=== PATIENT | female | born 1950 | race Caucasian/White ===

== ENCOUNTER 2016-08-21 15:24 | Emergency (ER) | payer OTHER ==
[~2016-08-21] VITALS: Ht 167.6 cm; Wt 85.0 kg
[~2016-08-21 15:24] MED LIST: ACET500T3 PO; AMLO5TAB2 PO; AZIT500T2 PO; BACL10TA PO; BENZ100 PO; FLUO20CA4 PO; GABA600T PO; MEDR4PAK PO; MOBI15TA PO; PENL8SOL TOPICAL; PRED50 PO
[2016-08-21 15:26] VITALS: BP 129/62; PULSE 92; RESP 16; TEMP 98.1; O2SAT 97
[2016-08-22 00:44] VITALS: BP 159/78; PULSE 80; RESP 18; O2SAT 97
--- NOTE | 2016-08-22 00:49 | PD ---
HPI Chief Complaint: Respiratory Symptoms Time Seen by Provider: 00:47 Travel History International Travel<30 days: No Contact w/Intl Traveler<30days: No Traveled to known affect area: No History of Present Illness HPI This is a 65-year-old female who presents to the emergency department with 5 days of wheezing, productive cough with yellow sputum, and shortness of breath, worsening with exertion, improved with rest with no associated fevers or chills. Patient reports that she saw her primary care physician 3 days ago and was prescribed prednisone and azithromycin that she feels like her cough isn't improving. She never smoked but every year she gets bronchitis around this same time. She's been having trouble sleeping at night due to the cough. PFSH Past Medical History Arthritis: Yes Depression: Yes Cancer: Yes (right breast cancer) Cardiovascular Problems: No High Cholesterol: Yes Cerebrovascular Accident: Yes Diabetes: No Endocrine: No Genitourinary: No Hepatitis: No Hiatal Hernia: Yes Hypertension: Yes Immune Disorder: No Kidney Stones: Yes Musculoskeletal: Yes (arthritis, osteo curvature of the spine alot of pain, osteoporosis) Neurologic: Yes (DIZZINESS at times, POSSIBLE TIA) Psychiatric: No Reproductive: No Respiratory: No Migraines: Yes Thyroid Disease: No ?: Not Past Surgical History Abdominal Surgery: Yes (KIDNEY STONE REMOVAL) AICD: No Body Medical Devices: hardware in the left ankle-2 rods and 2 screws Cardiac Surgery: No Ear Surgery: No Endocrine Surgery: No Eye Surgery: Yes (tear duct drainage ) Genitourinary Surgery: No Gynecologic Surgery: Yes (hysterectomy) Hysterectomy: Yes Joint Replacement: No Oral Surgery: Yes (t and a) Pacemaker: No Thoracic Surgery: No Tonsillectomy: Yes Social History Alcohol Use: Yes (OCCASIONAL) Tobacco Use: No Substance Use: No Allergies-Medications (Allergen,Severity, Reaction): Coded Allergies: Sulfa (Verified Allergy, Severe, Rash, 08/22/16) Reported Meds & Prescriptions Reported Meds & Active Scripts Active Azithromycin 500 Mg Tab 500 Mg PO DAILY Prednisone 50 Mg Tab 50 Mg PO DAILY Tessalon Perles (Benzonatate) 100 Mg Cap 100 Mg PO TID PRN Fluoxetine (Fluoxetine HCl) 20 Mg Cap 20 Mg PO TID Penlac (Nail Lacquer) Topical (Ciclopirox (Nail Lacquer) Topical) 8% Soln 1 Applic TOPICAL HS Reported Acetaminophen 500 Mg Tab 500 Mg PO Q6H PRN Mobic (Meloxicam) 15 Mg Tab 15 Mg PO DAILY Amlodipine (Amlodipine Besylate) 5 Mg Tab 5 Mg PO DAILY Baclofen 10 Mg Tab 10 Mg PO TID PRN Gabapentin 600 Mg Tab 600 Mg PO TID Review of Systems Except as stated in HPI: all other systems reviewed are Neg Physical Exam Narrative GENERAL:Well appearing, no acute distress SKIN: Warm and dry. HEAD: Atraumatic. Normocephalic. EYES: Pupils equal and round. No injection or drainage. ENT: Moist mucous membranes NECK: Trachea midline. CARDIOVASCULAR: Regular rate and rhythm. No murmur appreciated. RESPIRATORY: Diffuse wheezing, mild tachypnea, speaking full sentences GASTROINTESTINAL: Abdomen soft, non-tender, nondistended. MUSCULOSKELETAL: No obvious deformities. NEUROLOGICAL: Awake and alert. No obvious cranial nerve deficits. Moving all extremity PSYCHIATRIC: Appropriate mood and affect; insight and judgment normal. Data Data Last Documented VS Vital Signs Date Time Temp Pulse Resp B/P Pulse Ox O2 Delivery O2 Flow Rate FiO2 08/22/16 02:33 97 21 08/22/16 00:45 78 18 Room Air 08/22/16 00:44 159/78 08/21/16 15:26 98.1 Orders Albuterol-Ipratropium Neb (Duoneb Neb) (08/22/16 01:00) Chest, Pa & Lat (08/22/16 ) [facility] [place] Medical Decision Making Medical Screen Exam Complete: Yes Emergency Medical Condition: Yes Interpretation(s) Afebrile, mild tachycardia, normotensive Chest x-ray: No acute process Differential Diagnosis Bronchitis, pneumonia, pulmonary embolism Narrative Course This is a 65-year-old female who presents to the emergency department with shortness of breath and a productive cough. She is diffusely wheezing on exam. She was given serial bronchodilator treatments. She already took steroids today. On repeat exam her wheezing was significantly improved and she feels much better. Chest x-ray was negative for pneumonia. I think the patient should continue her steroids and antibiotics and she'll be discharged on a bronchodilator as well as a cough suppressant. Diagnosis Primary Impression: Bronchitis Patient Instructions: General Instructions Additional Instructions: If you develop severe shortness of breath, chest pain, or difficulty breathing return to the emergency department. Use albuterol every 4 hours for the next 2 days. Then use as needed for wheezing. Complete your course of steroids. Complete your course of antibiotics. Follow up with your primary care physician in 2-3 days if your symptoms have not improved. Med/Other Pt SpecificInfo: Prescription(s) given Scripts Promethazine-Codeine Liq 6.25-10 Mg/5 Ml Syrp5 Ml PO Q6H PRN (COUGH AND/OR COLD SYMPTOMS) #100 ML Ref 0 Prov:Yoanna Lopez MD 08/22/16 Albuterol 8.5 GM Inh (Proair Hfa 8.5 GM Inh)90 Mcg/Act Aer2 Puff INH Q4-6H PRN ( SHORTNESS OF BREATH) #1 INHALER Ref 0 108 mcg/actuation Prov:Yoanna Lopez MD 08/22/16 Disposition: 01 DISCHARGE HOME Condition: Stable Yoanna Lopez MD Aug 22, 2016 00:49
--- NOTE | 2016-08-22 01:58 | RADRPT ---
EXAM DATE/TIME: 08/22/2016 01:20 [facility] COMPARISON: CHEST SINGLE AP, November 07, 2014, 11:45. INDICATIONS : Cough. MEDICAL HISTORY : Hypertension. SURGICAL HISTORY : Mastectomy, right. ENCOUNTER: Initial ACUITY: 1 day PAIN SCORE: 0/10 LOCATION: Bilateral chest FINDINGS: PA and lateral views of the chest demonstrate the lungs to be symmetrically aerated without evidence of mass, infiltrate or effusion. The cardiomediastinal contours are unremarkable. Osseous structure s are intact. Right mastectomy. CONCLUSION: Clear lungs. Jose De Jesus Zapata MD on August 22, 2016 at 1:56 Board Certified Radiologist. This report was verified electronically.
[2016-08-22] MEDS: RESP: ALBUTEROL 2.5 MG/IPRATROPIUM 0.5 MG NEB (SCH) INH ×2 (02:30→02:31)
[2016-08-22 02:33] VITALS: O2SAT 97
[2016-08-22] MEDS ORDERED: PROM6.256 PO (02:50)
[2016-08-22] MEDS ORDERED: ALBUAER3 INH (02:50)
[2016-09-03] MEDS ORDERED: BACL10TA PO ×2 (13:56→13:57)
[2016-09-27] MEDS ORDERED: GABA600T PO ×2 (10:17→10:19)
[2016-11-29] MEDS ORDERED: GABA600T PO (13:41)
[2016-12-10] MEDS ORDERED: AMLO5TAB2 PO (08:25)
[2016-12-11] MEDS ORDERED: AMLO5TAB2 PO (07:50)
== END 2016-08-22 03:26 | disposition home or self-care (01) ==
LOC: NEPC 15:24
DX: J40 Bronchitis, not specified as acute or chronic (principal); E78.00 Pure hypercholesterolemia, unspecified; I10 Essential (primary) hypertension; Z88.2 Allergy status to sulfonamides; Z85.3 Personal history of malignant neoplasm of breast
CPT/HCPCS: 71020; 94640; 94664; 99283

== ENCOUNTER → 2017-01-28 | Outpatient (CLI) | payer OTHER ==
[~2017-01-28] MED LIST changes: +ALBUAER3 INH; +FLUO20CA12 PO; +MAPA500T13 PO; -MEDR4PAK PO; +OMEP40CA2 PO; +PROM6.256 PO
== END ==
LOC: CLAB 10:25
PROVIDERS: ATTEND Family Medicine
DX: M79.674 Pain in right toe(s) (principal)
CPT/HCPCS: 36415; 84550

== ENCOUNTER → 2017-03-04 | Outpatient (CLI) | payer OTHER ==
[~2017-03-04] MED LIST changes: -ACET500T3 PO; -ALBUAER3 INH; -AZIT500T2 PO; -BENZ100 PO; +CEPH-460 PO; +DIFL150T PO; -FLUO20CA4 PO; +POLY10O EACH EYE; -PRED50 PO; -PROM6.256 PO
[2017-03-04 09:14] LABS: AUTOMATED NEUTROPHIL # 2.7 TH/MM3 (1.8-7.7); BASOPHIL % 0.9 % (0.0-2.0); EOSINOPHIL # 0.1 TH/MM3 (0-0.4); EOSINOPHIL % 1.8 % (0.0-4.0); HEMATOCRIT 27.6 % (35.0-46.0); HEMO FLAGS DIFF FINAL; LYMPH % 20.5 % (9.0-44.0); LYMPHOCYTE # 0.8 TH/MM3 (1.0-4.8); MEAN CELL VOLUME 89.1 FL (80.0-100.0); MEAN CORPUSCULAR HGB CONC 31.5 % (32.0-36.0); NEUT % 70.8 % (16.0-70.0); PLATELET COUNT 261 TH/MM3 (150-450); RED BLOOD COUNT 3.09 MIL/MM3 (4.00-5.30); WHITE BLOOD COUNT 3.8 TH/MM3 (4.0-11.0)
[2017-03-04 09:51] LABS: ANION GAP 8 MEQ/L (5-15); AST (GOT) 13 U/L (15-37); BICARBONATE 26.3 MEQ/L (21.0-32.0); BLOOD UREA NITROGEN 19 MG/DL (7-18); CHLORIDE 107 MEQ/L (98-107); GLOMERULAR FILTRATION RATE 97 ML/MIN (>89); GLUCOSE,FASTING 94 MG/DL (74-99); POTASSIUM 3.6 MEQ/L (3.5-5.1); SODIUM (NA) 141 MEQ/L (136-145)
[2017-03-04 10:03] LABS: ALKALINE PHOSPHATASE 73 U/L (45-117); ALT (GPT) 19 U/L (10-53); HDL CHOLESTEROL 67.3 MG/DL (40.0-60.0); LDL CHOLESTEROL 74 MG/DL (0-99); TOTAL BILIRUBIN ADULT 0.4 MG/DL (0.2-1.0)
== END ==
LOC: CLAB 08:40
PROVIDERS: ATTEND Family Medicine
DX: K58.9 Irritable bowel syndrome, unspecified (principal); M79.674 Pain in right toe(s); G89.29 Other chronic pain; M19.90 Unspecified osteoarthritis, unspecified site; Z85.3 Personal history of malignant neoplasm of breast
CPT/HCPCS: 36415; 80053; 80061; 84443; 85025

== ENCOUNTER → 2017-03-06 | Outpatient (CLI) | payer OTHER ==
--- NOTE | 2017-03-06 11:24 | RADRPT ---
EXAM DATE/TIME: 03/06/2017 11:07 [facility] COMPARISON: No previous studies available for comparison. INDICATIONS : Abdomen pain, chronic intermittent diarrhea. MEDICAL HISTORY : IBS, Low hemoglobin count, high blood pressure. SURGICAL HISTORY : Hysterectomy. ENCOUNTER: Initial ACUITY: 1 day PAIN SCORE: 7/10 LOCATION: Bilateral abdomen FINDINGS: The bowel gas is nonspecific. There are no signs of obstruction or free air for technique. No defini te calcified stones are identified for technique. Moderate stool is present throughout the colon. CONCLUSION: Unremarkable study except for stool. Christy Mock MD on March 06, 2017 at 11:21 Board Certified Radiologist. This report was verified electronically.
== END ==
LOC: HRAD 10:40
PROVIDERS: ATTEND Family Medicine
DX: R10.84 Generalized abdominal pain (principal)
CPT/HCPCS: 74000

== ENCOUNTER → 2017-03-06 | Outpatient (CLI) | payer OTHER ==
[2017-03-06 12:03] LABS: BASOPHIL % 0.8 % (0.0-2.0); EOSINOPHIL % 0.1 % (0.0-4.0); HEMATOCRIT 29.3 % (35.0-46.0); HEMO FLAGS DIFF FINAL; LYMPH % 15.2 % (9.0-44.0); LYMPHOCYTE # 0.6 TH/MM3 (1.0-4.8); MEAN CELL VOLUME 87.9 FL (80.0-100.0); MEAN CORPUSCULAR HEMOGLOBIN 27.8 PG (27.0-34.0); MEAN CORPUSCULAR HGB CONC 31.6 % (32.0-36.0); MONO % 8.6 % (0.0-8.0); NEUT % 75.3 % (16.0-70.0); PLATELET COUNT 232 TH/MM3 (150-450); RED BLOOD COUNT 3.33 MIL/MM3 (4.00-5.30); RED CELL DISTRIBUTION WIDTH 16.4 % (11.6-17.2)
== END ==
LOC: CLAB 11:20
PROVIDERS: ATTEND Family Medicine
DX: D64.89 Other specified anemias (principal)
CPT/HCPCS: 36415; 85025

== ENCOUNTER 2017-03-25 16:50 | Emergency (ER) | payer OTHER ==
[~2017-03-25] VITALS: Ht 167.6 cm; Wt 90.0 kg
[~2017-03-25 16:50] MED LIST changes: -CEPH-460 PO; -DIFL150T PO; -POLY10O EACH EYE
[2017-03-25 16:53] VITALS: BP 130/58; PULSE 94; RESP 16; TEMP 98.4; O2SAT 98
[2017-03-25] MEDS ORDERED: DIFL150T PO (19:13)
[2017-03-25] MEDS ORDERED: CEPH-460 PO (19:13)
[2017-03-25] MEDS ORDERED: POLY10O EACH EYE (19:13)
--- NOTE | 2017-03-25 19:13 | PD ---
HPI Chief Complaint: Skin Problem Time Seen by Provider: 19:10 Travel History International Travel<30 days: No Contact w/Intl Traveler<30days: No Traveled to known affect area: No History of Present Illness HPI 66-year-old female presents to emergency department for evaluation of a burning rash in the folds of her lower abdomen and groin worsening over the last 3 days. Patient states she has been putting lotion there without any relief of symptoms. Denies any new exposures. Patient would also like her right thigh evaluated because it has been added with drainage of the last 2-3 days. Denies any trauma. No visual disturbances. No sensation of foreign body. No other symptoms to report. PFSH Past Medical History Hx Anticoagulant Therapy: No Arthritis: Yes Depression: Yes Cancer: Yes (right breast cancer) Cardiovascular Problems: No High Cholesterol: Yes Chemotherapy: No Cerebrovascular Accident: Yes (TIA'S) Diabetes: No Endocrine: No Gastrointestinal Disorders: Yes (reflux, appendix removed) Genitourinary: No Hepatitis: No Hiatal Hernia: Yes Hypertension: Yes Immune Disorder: No Implanted Vascular Access Dvce: Yes Kidney Stones: Yes Musculoskeletal: Yes (arthritis, osteo curvature of the spine alot of pain, osteoporosis) Neurologic: Yes (DIZZINESS at times, POSSIBLE TIA) Psychiatric: No Reproductive: No Respiratory: No Migraines: Yes Thyroid Disease: No ?: Not Past Surgical History Abdominal Surgery: Yes (KIDNEY STONE REMOVAL) AICD: No Body Medical Devices: hardware in the left ankle-2 rods and 2 screws Cardiac Surgery: No Ear Surgery: No Endocrine Surgery: No Eye Surgery: Yes (tear duct drainage ) Genitourinary Surgery: No Gynecologic Surgery: Yes (hysterectomy) Hysterectomy: Yes Joint Replacement: No Oral Surgery: Yes (t and a) Pacemaker: No Thoracic Surgery: No Tonsillectomy: Yes Other Surgery: Yes (hysterectomy, blocked right tear duct, right knee meiscus tear, tonsils out) Social History Alcohol Use: Yes (OCCASIONAL) Tobacco Use: No Substance Use: No Allergies-Medications (Allergen,Severity, Reaction): Coded Allergies: Sulfa (Sulfonamide Antibiotics) (Unverified Allergy, Severe, Rash, 03/25/17 ) Reported Meds & Prescriptions Reported Meds & Active Scripts Active Polytrim Opth Drops (Polymyxin/Trimethoprim Sulfate) 10,000-0.1 Unit/Ml-% Soln 1 Drop EACH EYE Q6HR Keflex (Cephalexin) 500 Mg Capsule 500 Mg PO Q6H 5 Days Diflucan (Fluconazole) 150 Mg Tab 150 Mg PO ONCE Fluoxetine (Fluoxetine HCl) 20 Mg Capsule 20 Mg PO TID Mobic (Meloxicam) 15 Mg Tab 15 Mg PO DAILY Omeprazole 40 Mg Cap 40 Mg PO DAILY Fluoxetine (Fluoxetine HCl) 20 Mg Capsule 20 Mg PO TID Amlodipine (Amlodipine Besylate) 5 Mg Tab 5 Mg PO DAILY Gabapentin 600 Mg Tab 600 Mg PO TID Baclofen 10 Mg Tab 10 Mg PO TID PRN Penlac (Nail Lacquer) Topical (Ciclopirox (Nail Lacquer) Topical) 8% Soln 1 Applic TOPICAL HS Reported Mapap Extra Strength (Acetaminophen) 500 Mg Tab 500 Mg PO Q4-6H PRN Review of Systems Except as stated in HPI: all other systems reviewed are Neg Physical Exam Narrative GENERAL: Well-nourished female patient in no acute distress SKIN: Focused skin assessment warm/dry. In the abdominal folds there is a well demarcated erythematous rash that is blanchable. There is mild excoriation. HEAD: Atraumatic. Normocephalic. EYES: Pupils equal and round. Right scleral injection. No foreign body identified. No increased uptake on fluorescein examination. EOMI. Crusting along the eyelashes. ENT: No nasal bleeding or discharge. Mucous membranes pink and moist. NECK: Trachea midline. No JVD. CARDIOVASCULAR: Regular rate and rhythm. No murmur appreciated. RESPIRATORY: No accessory muscle use. Clear to auscultation. Breath sounds equal bilaterally. GASTROINTESTINAL: Abdomen soft, non-tender, nondistended. Hepatic and splenic margins not palpable. MUSCULOSKELETAL: No obvious deformities. No clubbing. No cyanosis. No edema. NEUROLOGICAL: Awake and alert. No obvious cranial nerve deficits. Motor grossly within normal limits. Normal speech. PSYCHIATRIC: Appropriate mood and affect; insight and judgment normal. Data Data Last Documented VS Vital Signs Date Time Temp Pulse Resp B/P (MAP) Pulse Ox O2 Delivery O2 Flow Rate FiO2 03/25/17 19:21 03/25/17 16:53 98.4 94 16 98 MDM Medical Decision Making Medical Screen Exam Complete: Yes Emergency Medical Condition: Yes Medical Record Reviewed: Yes Differential Diagnosis Candidiasis intertrigo versus contact dermatitis versus skin excoriation Narrative Course 66-year-old female presents to emergency department for evaluation of a skin rash and right eye injection and drainage. Physical exam is consistent with a candidiasis intertrigo and a conjunctivitis. Patient will be treated for both. She is counseled on care. Encouraged to follow-up with primary care provider and return immediately with any acute worsening of symptoms. Diagnosis Primary Impression: Candidiasis, intertrigo Additional Impression: Conjunctivitis Qualified Codes: H10.31 - Unspecified acute conjunctivitis, right eye Referrals: Primary Care Physician Patient Instructions: General Instructions, Skin Yeast Infection (GEN) Additional Instructions: Keep the area clean and dry Wash with warm soapy water and pat dry Do not rub dry as this will excoriate your skin Frequent hand washing Follow up with a primary care provider Return immediately with any acute worsening of symptoms Med/Other Pt SpecificInfo: Prescription(s) given Scripts Polymyxin B-Trimethoprim Opth Drops (Polytrim Opth Drops) 10,000-0.1 Unit/Ml-% Soln 1 DROP EACH EYE Q6HR for Mgmt Bacterial Infection, #1 BOTTLE 0 Refills Prov: Cat Weston 03/25/17 Cephalexin (Keflex) 500 Mg Capsule 500 MG PO Q6H for Infection for 5 Days, CAP 0 Refills Prov: Cat Weston 03/25/17 Fluconazole (Diflucan) 150 Mg Tab 150 MG PO ONCE for Infection, #1 TAB 0 Refills Prov: Cat Weston 03/25/17 Disposition: 01 DISCHARGE HOME Condition: Stable Cat Weston Mar 25, 2017 19:13
== END 2017-03-25 19:29 | disposition home or self-care (01) ==
LOC: NEPK 16:50
DX: B37.49 Other urogenital candidiasis (principal); L30.4 Erythema intertrigo; H10.31 Unspecified acute conjunctivitis, right eye
CPT/HCPCS: 99284